=== PATIENT | male | born 1970 | race Caucasian/White ===

== ENCOUNTER → 2016-04-14 | Outpatient (CLI) | payer BC ==
[~2016-04-14] MED LIST: CIPRO 500MG TA500 MG PO; FLOMAX0.4 MG PO; NO HOME MEDICATIONS; PERCOCET 325 MG1 TA2 PO; PHENERGAN25 MG RC
== END ==
LOC: RAD 08:00
DX: R79.89 Other specified abnormal findings of blood chemistry (principal)

== ENCOUNTER → 2017-05-16 | Outpatient (CLI) | payer BC ==
[2013-10-04 00:40] VITALS: BP 100/56
== END ==
LOC: RAD 08:30
DX: R74.8 Abnormal levels of other serum enzymes (principal); K82.8 Other specified diseases of gallbladder; K76.0 Fatty (change of) liver, not elsewhere classified